=== PATIENT | male | born 1965 | race Caucasian/White ===

== ENCOUNTER 2023-02-24 08:53 | Outpatient (CLI) | payer BC, SELFPAY ==
--- NOTE | ~2023-02-24 | CT_ITS ---
EXAMINATION: CT lung screening DATE: 02/24/2023 09:27 INDICATION: hx tobacco use, still smokes, ant lower LT chest lump x4mo TECHNIQUE: Computed tomography (CT) of the chest was performed without intravenous contrast. Addition al 3D reconstructions utilizing coronal maximum intensity projection (MIP) were performed. Automated exposure control and iterative reconstruction technique were employed. The dose-length product was 18 2.21 mGy-cm. COMPARISON: None FINDINGS: Mild linear discoid atelectasis at the lingula. Calcified right lower lobe nodule, calcified right hi lar lymph nodes and a few small splenic calcifications, all consistent with old granulomatous disease . Noncalcified <2 mm nodules in the left upper lobe and along the right major fissure. No pneumonia, pulmonary edema or pleural effusion. Heart size is normal. Atherosclerotic coronary artery calcific l ocation. No pericardial effusion. Thoracic aorta is normal in caliber. Likely benign 7 mm coarsely ca lcified left thyroid nodule. No pathologically enlarged thoracic lymphadenopathy. Couple low-attenuat ion hepatic cysts the larger measuring 12 mm. Mild thoracic spondylosis. IMPRESSION: 1. Lung-RADS category 2: Benign appearance or behavior. Continue annual screening with noncontrast lo w-dose chest CT in 12 months. Reviewed, dictated and finalized at location A. IMPRESSION: 1. Lung-RADS category 2: Benign appearance or behavior. Continue annual screeni ng with noncontrast low-dose chest CT in 12 months.
== END 2023-02-24 08:54 | disposition home or self-care (01) ==
LOC: CHSIMG 09:00
PROVIDERS: PCP Internal Medicine; Visit Provider Internal Medicine
DX: Z12.2 Encounter for screening for malignant neoplasm of respiratory organs (principal); Z87.891 Personal history of nicotine dependence
CPT/HCPCS: 71271